=== PATIENT | male | born 1975 | race American Indian/Alaskan Native ===

== ENCOUNTER 2017-04-28 21:19 | Emergency (ER) | payer SELFPAY ==
[2017-04-29] MEDS ORDERED: MOTRIN PO ONE (00:09)
--- NOTE | 2017-04-29 00:12 | Emergency Department Report ---
HPI - General Chief Complaint: Upper Respiratory Infection Time Seen by Provider: 04/28/17 22:53 - HPI HPI: Patient report that he's been having nasal congestion cough for about a week and a half now but more cough and over the last 3 days. He denies any shortness of breath or chest pain. He is reported in tooth pain to right lower tooth at the back. Denies any nausea or vomiting. Denies any fever or chills. He said he took [id number] ibuprofen but it's not helping. Pain to tooth is 10 out of 10 and a kin. Nothing makes it better and nothing makes it worse. He does not have a primary care or dentist. Patient said that his insurance does not kick in until 28 days as he just started new job. He reports dry cough . Denies any medical problems. Denies any abdominal pain. Denies any back pain. ED Past Medical Hx - Past Medical History Previous Medical History?: No - Surgical History Past Surgical History?: Yes Additional Surgical History: left arm surgery - Family History Family history: hypertension - Social History Smoking Status: Current Every Day Smoker Substance Use Type: Alcohol - Medications Home Medications: Home Medications Medication Instructions Recorded Confirmed Last Taken Type Amoxicillin/K Clav Tab [Augmentin 1 tab PO Q12HR 10 Days #20 tab 04/29/17 Unknown Rx 875 mg] Cetirizine HCl [ZyrTEC] 10 mg PO QAM 14 Days #14 capsule 04/29/17 Unknown Rx Fluticasone [Flonase] 1 spray NS QDAY 14 Days #1 bottle 04/29/17 Unknown Rx Ibuprofen [Motrin] 800 mg PO Q8HR PRN #15 tablet 04/29/17 Unknown Rx ED Review of Systems ROS: Stated complaint: COLD,TOOTHACHE Other details as noted in HPI Comment: All other systems reviewed and negative Constitutional: no symptoms reported Eyes: denies: eye pain, eye discharge ENT: dental pain, congestion. denies: ear pain, throat pain Respiratory: cough. denies: orthopnea, shortness of breath, SOB with exertion, SOB at rest, stridor, wheezing Cardiovascular: denies: chest pain, palpitations, dyspnea on exertion, edema, syncope, paroxysmal nocturnal dyspnea Gastrointestinal: denies: abdominal pain, nausea, vomiting, diarrhea, constipation Genitourinary: denies: dysuria, hematuria Musculoskeletal: denies: back pain, joint swelling, arthralgia, myalgia Skin: denies: rash Neurological: denies: headache, weakness, numbness, paresthesias, confusion, abnormal gait, vertigo Physical Exam - Physical Exam Vital Signs: Vital Signs 04/28/17 21:35 Temperature 97.9 F Pulse Rate 109 H Respiratory 20 Rate Blood Pressure 131/94 Blood Pressure 131/94 [Left] O2 Sat by Pulse 97 Oximetry Vital Signs 04/28/17 04/29/17 21:35 00:08 Temperature 97.9 F Pulse Rate 109 H 88 Respiratory 20 Rate Blood Pressure 131/94 Blood Pressure 131/94 [Left] O2 Sat by Pulse 97 Oximetry General: This is a 41-year-old male well-nourished well-developed in no acute distress. He is obese Physical Exam: Head: Normocephalic atraumatic Ears:BIateral TM congested without erythema and loss of bony landmarks. Brad EAC with normal exam. No mastoid bone tenderness. Mouth: Moist, no pharyngeal erythema or exudate . No tonsillar erythema or exudate. UVULA midline and oral airways patent. No peritonsillar abscess multiple dental caries. Mild gingivitis. No abscess. Tongue is normal. Neck: Nontender to palpate, supple, normal range of motion. No adenopathy. No c- spine tenderness. Nose: Bilateral nasal mucosa congested with clear drainage. Maxillary and frontal sinuses non-tender to palpate. Eyes: Sclerae and conjunctiva without injection. Bilateral pupils equal and reactive to light. Bilateral lids are normal. Normal accommodation.BEOMI Extremity: No clubbing, cyanosis or edema. +2+ distal extremities and no neurovascular compromise Abdomen: Soft, nontender to palpate in all quadrants, no guarding or rebound tenderness and no CVA tenderness Lungs: Clear to auscultate bilaterally, no rhonchi wheezes or rales. Normal work of breathing and no chest wall tenderness. Dry cough CV: S1, S2. Tachycardic at 104, Regular rhythm negative murmur. Capillary refill is less than 3 seconds Skin: Clean dry and intact, no rashes or lesions Psych: Normal mood and behavior ED Course Vital Signs 04/28/17 21:35 Temperature 97.9 F Pulse Rate 109 H Respiratory 20 Rate Blood Pressure 131/94 Blood Pressure 131/94 [Left] O2 Sat by Pulse 97 Oximetry Vital Signs 04/28/17 04/29/17 21:35 00:08 Temperature 97.9 F Pulse Rate 109 H 88 Respiratory 20 Rate Blood Pressure 131/94 Blood Pressure 131/94 [Left] O2 Sat by Pulse 97 Oximetry - Reevaluation(s) Reevaluation #1: 04/29/17 00:15 Patient given Motrin 800 mg in the emergency room for toothache. ED Medical Decision Making - Medical Decision Making ED course: She did complain of toothache and cough with nasal congestion this been ongoing for about a week and a half but getting worse. Physical findings for upper respiratory infection with cough and congestion. Patient does not have any chest pain or shortness of breath. He also has gingivitis with dental caries. I discussed patient his diagnosis and treatment plan and need to follow up with primary care and dentist. He voiced understanding. Patient was given Motrin 800 mg emergency room for toothache. Heart rate is down to 88 bpm apical. Patient discharged home with prescription for Motrin, Augmentin, Flonase and Zyrtec. Critical care attestation.: If time is entered above; I have spent that time in minutes in the direct care of this critically ill patient, excluding procedure time. ED Disposition Clinical Impression: Upper respiratory infection with cough and congestion, Gingivitis, Dental caries, Tooth ache Disposition: - TO HOME OR SELFCARE Is pt being admited?: No Does the pt Need Aspirin: No Condition: Stable Instructions: Dental Caries (ED), Toothache (ED), Gingivitis (ED), Upper Respiratory Infection (ED), Acute Cough (ED) Additional Instructions: Please increase your fluid intake Flush nostrils with saline nasal spray take antibiotic as prescribed and follow up with dentist to fix underlying problem with your teeth. Youhave inflammation a few gums and also multiple dental caries. F/U with primary care physician as instructed See referral to [facility] and also [facility] dental clinic. Please call on Sunday to schedule an appointment for primary care visits and also dental. Prescriptions: Amoxicillin/K Clav Tab [Augmentin 875 mg] 1 tab PO Q12HR 10 Days #20 tab Cetirizine HCl [ZyrTEC] 10 mg PO QAM 14 Days #14 capsule Fluticasone [Flonase] 1 spray NS QDAY 14 Days #1 bottle Ibuprofen [Motrin] 800 mg PO Q8HR PRN #15 tablet PRN Reason: Toothache Referrals: [facility] [Outside] - 04/30/17 [facility] [Outside] - 04/30/17 Forms: Work/School Release Form(ED)
[2017-04-29 00:29] VITALS: BP 135/93
== END 2017-04-29 00:29 | disposition home or self-care (01) ==
LOC: ED 21:19
DX: J06.9 Acute upper respiratory infection, unspecified (principal); K05.10 Chronic gingivitis, plaque induced; K02.9 Dental caries, unspecified; F17.200 Nicotine dependence, unspecified, uncomplicated
CPT/HCPCS: 99282

== ENCOUNTER 2017-06-30 07:36 | Emergency (ER) | payer SELFPAY ==
[2017-06-30 07:48] VITALS: BP 167/99
--- NOTE | 2017-06-30 08:19 | Emergency Department Report ---
HPI - General Chief Complaint: Medical Clearance Time Seen by Provider: 06/30/17 08:18 - HPI HPI: This is a 41-year-old male stated that he was at work last night and became fevers. He said he started sweating and is feeling cold from the waist to the feet. Patient stated that he noticed a bump on his right groin area. Denies any penile discharge, rash, lesions. Denies any concern for STD. Patient said he thinks that he was bitten by something because he has a bump that she arrived on his thigh area. Denies any drainage. Denies any fever or chills. Patient with elevated blood pressure 167/99 and he said he does not have a history of high blood pressure. Denies any shortness of breath or chest pain. Denies any coughing, wheezing or swelling of tongue or neck. No medication taken. Worse with movement , better at rest. ED Past Medical Hx - Past Medical History Previous Medical History?: No - Surgical History Past Surgical History?: Yes Additional Surgical History: left arm surgery - Family History Family history: hypertension - Social History Smoking Status: Current Every Day Smoker Substance Use Type: None - Medications Home Medications: Home Medications Medication Instructions Recorded Confirmed Last Taken Type Amoxicillin/K Clav Tab [Augmentin 1 tab PO Q12HR 10 Days #20 tab 04/29/17 Unknown Rx 875 mg] Cetirizine HCl [ZyrTEC] 10 mg PO QAM 14 Days #14 capsule 04/29/17 Unknown Rx Fluticasone [Flonase] 1 spray NS QDAY 14 Days #1 bottle 04/29/17 Unknown Rx Cephalexin [Keflex] 500 mg PO Q8HR 10 Days #20 cap 06/30/17 Unknown Rx Ibuprofen [Motrin 800 MG tab] 800 mg PO Q8HR PRN #15 tablet 06/30/17 Unknown Rx ED Review of Systems ROS: Stated complaint: INSECT BITE Other details as noted in HPI Comment: All other systems reviewed and negative Constitutional: chills, other ENT: denies: throat pain, congestion Respiratory: no symptoms reported Cardiovascular: denies: chest pain, palpitations, edema, syncope Musculoskeletal: denies: back pain, joint swelling, arthralgia, myalgia Skin: rash, other (right inner thigh and also bump to right groin area.) Neurological: denies: headache, abnormal gait, vertigo Physical Exam - Physical Exam Vital Signs: Vital Signs 06/30/17 07:39 Temperature 98 F Pulse Rate 112 H Respiratory 17 Rate Blood Pressure 167/99 O2 Sat by Pulse 95 Oximetry Vital Signs 06/30/17 06/30/17 07:39 08:18 Temperature 98 F Pulse Rate 112 H 98 H Respiratory 17 Rate Blood Pressure 167/99 O2 Sat by Pulse 95 Oximetry ED Course Vital Signs 06/30/17 07:39 Temperature 98 F Pulse Rate 112 H Respiratory 17 Rate Blood Pressure 167/99 O2 Sat by Pulse 95 Oximetry Vital Signs 06/30/17 06/30/17 07:39 08:18 Temperature 98 F Pulse Rate 112 H 98 H Respiratory 17 Rate Blood Pressure 167/99 O2 Sat by Pulse 95 Oximetry - Reevaluation(s) Reevaluation #1: 06/30/17 08:40 Patient is stable in no acute distress. ED Medical Decision Making - Medical Decision Making Patient here report that he has a bump to his groin and he thinks is been bitten by something because he has a red bump to his thigh. Patient found to have right inguinal lymph nodes with proximal dime size, indurated cellulitic area that is tender that they'll probably at right inner proximal thigh. No fluctuance noted. I discussed patient in diagnoses and treatment plan. I discussed him that he needs to place warm compresses to the affected site this facilitate drainage. He reports understanding. Patient discharged home in stable condition with prescription for Motrin and Keflex and follow up with his primary care physician in 2-3 days. So discussed the patient and his blood pressure is elevated and he needs to keep a log of his blood pressure and take to primary care visit with him. He said that she was visiting taken until July 27 set told him to follow-up at [facility]. Critical care attestation.: If time is entered above; I have spent that time in minutes in the direct care of this critically ill patient, excluding procedure time. ED Disposition Clinical Impression: Cellulitis of right thigh, Elevated blood-pressure reading without diagnosis of hypertension Disposition: -01 TO HOME OR SELFCARE Is pt being admited?: No Does the pt Need Aspirin: No Condition: Stable Instructions: Heart Healthy Diet (ED), DASH Eating Plan (ED), Hypertension (ED) , How to Take a Blood Pressure (ED), Cellulitis (ED), Acute Wound Care (ED) Additional Instructions: Take antibiotic as prescribed Follow-up with your primary care physician in 2-3 days Keep affected area clean and dry. Followed discharge instruction on acute wound care . Please return to emergency room if you develop increasing redness, streaking, fever, difficulty moving in and the right thigh and increase in pain. Prescriptions: Cephalexin [Keflex] 500 mg PO Q8HR 10 Days #20 cap Ibuprofen [Motrin 800 MG tab] 800 mg PO Q8HR PRN #15 tablet PRN Reason: pain Referrals: [facility] [Outside] - 2-3 Days Forms: Work/School Release Form(ED)
== END 2017-06-30 09:39 | disposition home or self-care (01) ==
LOC: ED 07:36
DX: L03.115 Cellulitis of right lower limb (principal); I10 Essential (primary) hypertension; F17.200 Nicotine dependence, unspecified, uncomplicated
CPT/HCPCS: 99281